=== PATIENT | female | born 1990 | race Hispanic/Latino ===

== ENCOUNTER 2025-04-16 09:24 | Inpatient (IN) | payer OTHER, SELFPAY ==
[2025-04-16] MEDS ORDERED: Methylergonovine 0.2 MG/ML VIAL IM PRN (09:45)
[2025-04-16] MEDS ORDERED: hydrALAZINE 20 MG/ML VIAL SLOW IVP PRN ×2 (09:45→11:54)
[2025-04-16] MEDS ORDERED: Diphenoxylate HCl/Atropine Tablet PO PRN (09:45)
[2025-04-16] MEDS ORDERED: Oxytocin 30 units/NS 500 ML 500 ML IV SCH ×2 (09:45→12:00)
[2025-04-16] MEDS ORDERED: Ondansetron PF 4 MG/2 ML Vial IVP PRN ×2 (09:45→11:54)
[2025-04-16] MEDS ORDERED: Lidocaine 1% (PF) 30 ML VIAL SC PRN (09:45)
[2025-04-16] MEDS ORDERED: Acetaminophen 500 MG TAB PO PRN (09:45)
[2025-04-16] MEDS ORDERED: Tranexamic Acid 1,000 MG/10 ML VIAL IVP PRN (09:45)
[2025-04-16] MEDS ORDERED: Carboprost 250 MCG/ML AMP IM PRN (09:45)
[2025-04-16 10:09] LABS: Hematocrit 31.6 % (34.9-44.5); Hemoglobin 9.8 g/dL (12.0-15.5); Mean Corpuscular Hemoglobin 22.6 pg (27.0-33.0); Mean Corpuscular Volume 73.0 fL (81.6-98.3); Platelet Count 245 10x3/uL (150-450); Red Blood Cell (RBC) Count 4.33 10x6/uL (3.90-5.03); White Blood Cell (WBC) Count 9.84 10x3/uL (3.5-10.5)
[2025-04-16 10:38] LABS: Hep B Surf Ag - L&D Non-Reactive S/CO (NonReactive)
[2025-04-16 10:39] LABS: Syphilis Antibody Index 0.07 S/CO (<1.00 Non-Reactive)
[2025-04-16] MEDS ORDERED: Milk Of Magnesia 30 ML UDCUP PO PRN (11:54)
[2025-04-16] MEDS ORDERED: HYDROcodone/Acetaminophen 5/325 mg Tablet PO PRN (11:54)
[2025-04-16] MEDS ORDERED: Bisacodyl 10 MG SUPP PR PRN (11:54)
[2025-04-16] MEDS: Ibuprofen 800 MG TAB PO PRN (11:56)
[2025-04-16 12:16] LABS: HIV (1/2) Antibody/Antigen Non-Reactive (NonReactive); HIV 1/2 INDEX 0.16 S/CO (<1.00)
[2025-04-16] MEDS: Methylergonovine 0.2 MG TAB PO SCH (14:40)
[2025-04-16 19:28] VITALS: BMI 25.9
[2025-04-16] MEDS: Ibuprofen 800 MG TAB PO SCH (20:50)
[2025-04-16] MEDS: levETIRAcetam 500 MG TAB PO SCH (20:51)
[2025-04-16] MEDS: Ferrous Sulfate 325 MG TAB PO SCH (20:51)
[2025-04-16] MEDS ORDERED: levETIRAcetam 500 MG TAB PO SCH (21:00)
[2025-04-16] MEDS ORDERED: Ibuprofen 800 MG TAB PO SCH (22:00)
[2025-04-17 12:07] VITALS: BP 101/55; TEMP 98.1
== END 2025-04-17 12:30 | disposition home or self-care (01) | DRG 807 ==
LOC: CSHLD/OP 09:24 → CSHLD 09:50 → CSHPP 13:45
PROVIDERS: ADMIT Obstetrics & Gynecology; ATTEND Obstetrics & Gynecology
PROC: 10E0XZZ Delivery of Products of Conception, External Approach (ICD-10-PCS; principal; 2025-04-16)
DX: O80 Encounter for full-term uncomplicated delivery (principal); Z37.0 Single live birth; Z3A.39 39 weeks gestation of pregnancy
CPT/HCPCS: 36415; 85027; 86780; 86850; 86900; 86901; 87340; 87389; 99285